=== PATIENT | female | born 1940 | race Caucasian/White ===

== ENCOUNTER → 2018-11-21 | Outpatient (CLI) | payer OTHER ==
[~2018-11-21] VITALS: Ht 154.9 cm; Wt 131.1 kg
[~2018-11-21] MED LIST: APAP650 PO; ASPIR 8181 MG PO; ATROVENT HFA14 GM INH; AZELASTINE137 MCG/0. NASAL; BIOFREEZE118 ML TOP; CARAFATE 1 GM TA1 G1 PO; CERAVE453 GM TOP; CLINDAMYCIN PHO30 GM TOP; COLACE100 MG PO; COMBIVENT INH; FLONASE 0.05%50 MCG NASAL; LIDODERM1 EACH TOP; LISINOPRIL10 MG PO; MAALOX MAXIMUM355 ML PO; MIRALAX17 GM PO; MOBIC15 MG PO; NORITATE60 GM TOP; NYAMYC15 GM TOP; ONDANSETRON HCL4 M2 PO; OXYCONTIN10 M1 PO; PEPCID20 MG PO; ROXICODONE5 MG PO; SENNA8.6 MG PO; SINGULAIR 10 MG10 M1 PO; SYMBICORT160 MCG/4. INH; SYNTHROID200 MCG PO; TRIAMCINOLONE A80 G2 TOP; UNICOMPLEX M TA1 TA1 PO; VENTOLIN HFA 1818 GM INH; WELLBUTRIN XL300 MG PO; XANAX 0.5 MG0.5 MG PO; [UNRECOGNIZED DRUG - OTHER] TOP
--- NOTE | ~2018-11-21 | HPC ---
[facility] [place] [address] PAIN MANAGEMENT CONSULTATION Name: CAMERON KAISER Room #: REG ROSA JuarezGiovanaDawsonGiovana#: [id number] Admission: 11/21/18 ������������������ Attend Phys: eJana Stone MD Discharge: ������������������ Date of : 44 Report #: [id number] THIS REPORT FOR: //name// CC: RODRIGO physician/PCP Jeana Stone DATE OF SERVICE: 11/21/2018 CHIEF COMPLAINT: Bilateral back and shoulder pain. HISTORY: The patient is a 78-year-old female, who has been referred to the pain clinic for evaluation of chronic pain involving her upper extremities. She complains of pain, which is radiating down into her shoulders to the level of her elbows. It has been problematic for about the last 8 months. She has had cortisone injections in her shoulders. It was felt that they helped for a brief amount of time for generally about a week. She had electrical stimulation in her shoulder areas. She states that this worked for about 4 hours. She has had occupational therapy as well as physical therapy. She has tried use of TENS unit. She states that she needs shoulder replacements. She did work in the past as a respiratory therapist at [employer]. She was told that her upper extremity should not be moved too much because of her shoulders. She has also been told that if she does not move her shoulders then they probably will become less effective as arthritic changes start to incur. PAST MEDICAL HISTORY: 1. Morbid obesity. 2. Polyarthritis. 3. Type 2 diabetes with diabetic neuropathy. 4. Hypothyroidism. 5. Major depressive disorder, in remission. 6. Unspecified asthma. 7. Essential hypertension. 8. Chronic pain. 9. Allergic rhinitis. 10. Obstructive sleep apnea. PAST SURGICAL HISTORY: Cholecystectomy in 1987. Abdominal hernia repair in 1999 and 2009. CURRENT MEDICATIONS: Azelastine 137 mcg pump q.12 hours, Combivent 14.7 g inhaler 1-2 puffs up to 4 times daily, Symbicort 160/4.5 inhaled b.i.d., Synthroid 200 mcg, Flonase 0.05% nasal spray, Unicomplex-M tablets, meloxicam 15 mg, CeraVe 453 grams topical, Maalox Maximum q.4 hours p.r.n., Aristocort R 0.1% tube apply topical 4 times to 2 times daily, clindamycin gel topical, metronidazole 60 gram topical, Atrovent 2 puffs q.4 hours, Zestril 10 mg, Singulair 10 mg, Ventolin q.6 hours 2 puffs, Zofran 4 mg, Pepcid 20 mg b.i.d., [facility] [address] [place] [address] PAIN MANAGEMENT CONSULTATION Name: CAMERON KAISER Room #: REG ROSA Sommer#: [id number] Admission: 11/21/18 ������������������ Attend Phys: Jeana Stone MD Discharge: ������������������ Date of : 42 Report #: [id number] Xanax 0.5 mg, anxiety and restlessness; Colace 100 mg, Senna 2 daily, Carafate 1 gram b.i.d., Lidoderm topical, Tylenol Arthritis 650 mg, nystatin powder, Wellbutrin-XL 300 mg, aspirin 81 mg, MiraLax 17 grams, Roxicodone 5 mg q.6 hours, Biofreeze 118 mL gel b.i.d., and luliconazole 60 gram cream topical. ALLERGIES: SULFA, LORAZEPAM, ISUPREL, INDOMETHACIN, CIPRO, SCOPOLAMINE, GABAPENTIN, METFORMIN, CORTISONE, MILK, AND LATEX. SOCIAL HISTORY: She is retired. She used to be respiratory therapist, has not worked since 1990. REVIEW OF SYSTEMS: Weight change, fatigue, cataracts, hearing loss, chronic sinus problems, shortness of breath with walking, asthma, rash, itching, change in skin color, varicose veins, lightheadedness, dizziness, tremors, anxiety, insomnia, thyroid disease, diabetes, hot and cold intolerance, and anemia history. PAIN CLINIC ASSESSMENT AND PQRS: 1. History of osteoarthritis. The patient has osteoarthritic changes in her shoulders. 2. Rheumatoid arthritis. The patient is not being treated for rheumatoid arthritis. 3. Pain intensity is 6/7. 4. Fall risk. The patient has not fallen in the last 3 months. 5. Blood thinner. The patient is not on a blood thinning medication. 6. Hypertension. The patient is being treated for hypertension. 7. Opioids. The patient received medication from her source. 8. Risk assessment tool, low for opioid use. 9. Functional assessment, 32/70. 10. Recreational drug use. The patient denies use of recreational drugs. 11. Tobacco: The patient has never smoked. 12. Alcohol: The patient denies use of alcoholic beverages. PHYSICAL EXAMINATION: GENERAL: The patient is a well-developed white female. She appears morbidly obese. She is alert and oriented x 3. Affect is appropriate. Speech is fluent. Height is 5 feet 1 inch, weight is 289 pounds, and BMI is 54.6. VITAL SIGNS: Blood pressure was 134/70, pulse was 86, respiratory rate was 18, and room air saturation was 97%. HEENT: Normocephalic, atraumatic. The patient has pain and discomfort in the upper extremity. She complains of pain and discomfort in her shoulders. Limited movement of her upper extremities. She notes increased pain in her shoulders. She is unable to lift her hands over her head. HEART: Difficult to hear the heart tones. Pulse is regular. Respiratory sounds are distant. ABDOMEN: Protuberant. [facility] [address] [place] [address] PAIN MANAGEMENT CONSULTATION Name: CAMERON KAISER Room #: REG ROSA JuarezGiovanaDawsonGiovana#: [id number] Admission: 11/21/18 ������������������ Attend Phys: Jenaa Stone MD Discharge: ������������������ Date of : 42 Report #: [id number] EXTREMITIES: The patient is in a wheelchair. Lower extremity muscle strength is judged to be 4+/5 for the major muscle groups in the lower extremity. LABORATORY DATA: No laboratory values are available at the time of our interview. IMPRESSION: 1. 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 2. Morbid obesity. 3. Polyarthritis. 4. Type 2 diabetes with diabetic neuropathy. 5. Hypothyroidism. 6. Major depressive disorder, in remission. 7. Unspecified asthma. 8. Essential hypertension. 9. Chronic pain. 10. Allergic rhinitis. 11. Obstructive sleep apnea. RECOMMENDATIONS: We have discussed treatment options with the patient. I do not think that she has a real option. Lack of activity in her upper extremities will definitely present with more atrophy. We will try to increase her OxyContin to 10 mg 1 p.o. b.i.d. to t.i.d. and noticed efficacy. There are no growth good choices at this juncture. The patient needs to stay as active as possible to keep her upper extremities as well as lower extremity as active as possible. A script for OxyContin 10 mg 1 p.o. daily has been written. She can follow up in the future as needed. We would like to thank you for letting us to participate in her care. We hope she continues to improve. ��������������������������������������������� ���������������������������������������� By: ��������������������������������������������� 1807 0610 Jeana Stone MD /NIMO
[2018-11-21 13:51] VITALS: BP 134/70
== END ==
LOC: PAIN 07:13
DX: M19.011 Primary osteoarthritis, right shoulder (principal); M19.012 Primary osteoarthritis, left shoulder; G89.29 Other chronic pain; E11.40 Type 2 diabetes mellitus with diabetic neuropathy, unspecified; E03.9 Hypothyroidism, unspecified; J45.909 Unspecified asthma, uncomplicated; I10 Essential (primary) hypertension; G47.33 Obstructive sleep apnea (adult) (pediatric); E66.01 Morbid (severe) obesity due to excess calories; F32.5 Major depressive disorder, single episode, in full remission; Z68.43 Body mass index [BMI] 50.0-59.9, adult; Z79.899 Other long term (current) drug therapy

== ENCOUNTER → 2019-05-17 | Outpatient (CLI) | payer OTHER ==
[~2019-05-17] VITALS: Ht 154.9 cm; Wt 129.3 kg
[2019-05-17 13:03] VITALS: BP 129/57
--- NOTE | 2019-05-17 13:15 | NUR ---
Pain Clinic Assessment: 1. History of Osteoarthritis: SHOULDERS History of Rheumatoid Arthritis: Not Applicable 2. Height: 5 ft. 1 in. 154.9 cm. Weight: 285.0 lb. oz. 129.276 kg. Patient's BMI: 53.9 3. Vital Signs: BP: 129/57 Pulse: 81 Resp: 16 Temp: 02 Sat: 97 ECG Mon: 4. Pain Intensity: 6-7 5. Fall Risk: Dizziness: Y Needs help standing or walking: Y Fallen in the last 3 months: N Fall risk comments: 6. Patient on Blood Thinner: None 7. History of Hypertension: Y 8. Opioid Therapy greater than 6 weeks: N Opiate Contract Signed: 9. Risk Assessment Tool Provided: LOW RISK 08/30 10. Functional Assessment Tool: 11. Recreational Drug Use: Never Drug Type: Tobacco Use: Never Smoker Tobacco Type: Amount or Packs/day: How Many Years: Alcohol Use: No Frequency: Quant:
--- NOTE | 2019-06-07 08:26 | HPC ---
[facility] [place] [address] PAIN MANAGEMENT CONSULTATION Name: CAMERON KAISER Room #: REG ROSA DelgadoGiovana#: [id number] Admission: 05/17/19 Attend Phys: Jeana Stone MD Discharge: Date of : 42 Report #: [id number] THIS REPORT FOR: //name// CC: RODRIGO physician/PCP Jeana Stone DATE OF SERVICE: 05/17/2019 CHIEF COMPLAINT: Left and right shoulder pain and neck pain. HISTORY: The patient is a 78-year-old female who has been seen in the pain clinic in the past because of chronic pain involving her upper extremities. She has suffered from pain that radiates down in her shoulders to the level of the elbows. She has been noticing worsening of her pain over the last several months. She has used Biofreeze daily. She finds that this is helpful. She lives in the [facility]. She has used a TENS unit in the past. She has used Voltaren gel and found that has been helpful. Has used oxycodone and found that is helpful. Water therapy has been beneficial. Describes her pain as constant, sometimes sharp and throbbing. Rates it as a 6-7 at this juncture. She has returned to the pain clinic for evaluation. ALLERGIES: SULFA, LORAZEPAM, ISUPREL, INDOMETHACIN, CIPRO, SCOPOLAMINE, GABAPENTIN, METFORMIN, CORTISONE, MILK, AND LATEX. CURRENT MEDICATIONS: Oxycodone 10 mg, azelastine 137 mcg q.12 hours, Combivent 14.7 inhaler 1-2 puffs 4 times daily, Symbicort 160/4.5, Synthroid 200 mcg, Flonase 0.05% two sprays nasal, mineral, multivitamins and iron, meloxicam 15 mg, CeraVe 453 grams cream topical, Maalox q.4 hours p.r.n. , clindamycin, metronidazole cream topical, Atrovent 2 puffs q.4 hours, lisinopril 10 mg, Singulair 10 mg, Ventolin HFA 2 puffs, Zofran 4 mg q.6 hours p.r.n., Pepcid 20 mg b.i.d., Xanax 0.5 mg restlessness, Colace 100 mg, senna 8.6 mg, Carafate 1 g b.i.d., Lidoderm topical, Tylenol Extra Strength 650 mg, nystatin 15 grams powder topical 3 times, Wellbutrin-XL 300 mg, aspirin 81 mg, MiraLax 17 grams, Roxicodone 5 mg q.6 hours p.r.n., Biofreeze 118 topical b.i.d., and luliconazole cream topical. PAIN CLINIC ASSESSMENT/PQRS: 1. History of osteoarthritis. The patient has osteoarthritic changes in her shoulders. The patient is not being treated for rheumatoid arthritis. 2. Height 5 feet 1 inch, weight 285 pounds, BMI is 53.9. 3. Vital signs: Blood pressure 129/57, pulse 81, respiratory rate 16, room air saturation 97%. 4. Pain intensity 6-7/10. 5. Fall risk. The patient has not fallen in the last 3 months. 6. Blood thinner. The patient is not on a blood thinning medication. 7. Hypertension. The patient is being treated for hypertension. [facility] [address] [place] [address] PAIN MANAGEMENT CONSULTATION Name: AWILDACAMERON Room #: REG ROSA Sommer#: [id number] Admission: 05/17/19 Attend Phys: Jeana Stone MD Discharge: Date of : 42 Report #: [id number] 8. Risk assessment tool, low for opioid use. 9. Functional assessment tool . 10. Recreational drug use. The patient denies. 11. Tobacco: The patient has never smoked. 12. Alcohol. The patient denies frequent use of alcoholic beverages. PHYSICAL EXAMINATION: GENERAL: The patient is a well-developed, somewhat obese white female, appears her stated age. She is alert and oriented x 3. Affect is appropriate. Speech is fluent. HEENT: Normocephalic, atraumatic. Extraocular eye muscles intact. Sclerae nonicteric. Mucous membranes are moist. NECK: Without adenopathy. The patient has shoulder pain. Some decreased range of motion in her upper extremities. Unable to lift her hands above her head. HEART: Difficult to hear secondary to the patient's body habitus. Respiratory sounds distant. ABDOMEN: Protuberant. EXTREMITIES: Muscle strength in the lower extremity, judged to be 4+/5 for the major muscle groups in the lower extremity. IMPRESSION: 1. Chronic pain involving osteoarthritis of the shoulder, morbid obesity. 2. Polyarteritis. 2. Type 2 diabetes with diabetic neuropathy. 3. Hypothyroidism. 4. Major depressive disorder, in remission. 5. Unspecified asthma. 6. Essential hypertension. 7. Chronic pain. 8. Allergic rhinitis. 9. Obstructive sleep apnea. RECOMMENDATIONS: We discussed the options with the patient. The patient has used TENS unit in the past and found that efficacious. I think it would be reasonable to apply it as needed to the affected areas. We would also continue the patient with OxyContin 5-10 mg daily. Hopefully, this will continue to help with her pain. Does take oxycodone on occasion. Should her pain continue to be problematic, she can take the oxycodone 5 mg in conjunction during a day with the 10 mg of OxyContin. She would also like to consider water therapy. She found that this was helpful. The patient may also continue with the Biofreeze, which she finds advantageous t.i.d. [facility] [address] [place] [address] PAIN MANAGEMENT CONSULTATION Name: AWILDACAMERON Room #: REG [facility]#: [id number] Admission: 05/17/19 Attend Phys: Jeana Stone MD Discharge: Date of : 42 Report #: [id number] We would like to thank you for letting us participate in her care. We hope she continues to improve. <ELECTRONICALLY SIGNED> By: Jeana Stone MD 06/07/19 [id number] Jeana Stone MD /NIMO
== END ==
LOC: PAIN 06:52
DX: M25.512 Pain in left shoulder (principal); E11.40 Type 2 diabetes mellitus with diabetic neuropathy, unspecified; E03.9 Hypothyroidism, unspecified; F32.9 Major depressive disorder, single episode, unspecified; J45.909 Unspecified asthma, uncomplicated; I10 Essential (primary) hypertension; G89.29 Other chronic pain; G47.33 Obstructive sleep apnea (adult) (pediatric); M31.7 Microscopic polyangiitis; Z91.040 Latex allergy status; Z79.899 Other long term (current) drug therapy; Z88.8 Allergy status to other drugs, medicaments and biological substances

== ENCOUNTER → 2020-12-25 | Outpatient (CLI) | payer OTHER ==
[~2020-12-25] VITALS: Ht 152.4 cm; Wt 135.6 kg
[~2020-12-25] MED LIST changes: +.; +CRANBERRY200 MG PO; +CULTURELLE KID1 EAC1 PO; +CYCLOBENZAPRINE5 MG PO; +DESITIN57 GM TOP; +DULCOLAX10 MG RECTAL; +EMU-LAC HYDRAT120 ML TOP; +GLUCOSAMIN-CHO1 EACH PO; +K-MG CITRATE 91 EACH PO; +LEVO-T100 MCG PO; +LEXAPRO20 MG PO; +MELATONIN5 MG SUBLING; +MELOXICAM15 MG PO; +MYLANTA MAXIMU355 ML PO; +OMEPRAZOLE 20 M20 M1 PO; +ORADENT 0.1% DEN5 G1 TOP; +VOLTAREN GEL 1100 G2 TOP
[2020-12-25 11:28] VITALS: BP 133/78
--- NOTE | 2020-12-25 12:01 | NUR ---
Pain Clinic Assessment: 1. History of Osteoarthritis: SHOULDERS History of Rheumatoid Arthritis: Not Applicable 2. Height: 5 ft. 0 in. 152.4 cm. Weight: 299.0 lb. oz. 135.626 kg. Patient's BMI: 58.4 3. Vital Signs: BP: 133/78 Pulse: 80 Resp: 16 Temp: 02 Sat: 95 ECG Mon: 4. Pain Intensity: 6 5. Fall Risk: Dizziness: N Needs help standing or walking: Y Fallen in the last 3 months: N Fall risk comments: 6. Patient on Blood Thinner: None 7. History of Hypertension: Y 8. Opioid Therapy greater than 6 weeks: N Opiate Contract Signed: 9. Risk Assessment Tool Provided: 3 LOW RISK 10. Functional Assessment Tool: 39/ 11. Recreational Drug Use: Never Drug Type: Tobacco Use: Never Smoker Tobacco Type: Amount or Packs/day: How Many Years: Alcohol Use: No Frequency: Quant:
== END ==
LOC: PAIN 09:18
PROVIDERS: ATTEND Anesthesiology Pain Medicine
DX: M19.012 Primary osteoarthritis, left shoulder (principal); M19.011 Primary osteoarthritis, right shoulder; G89.4 Chronic pain syndrome; M25.561 Pain in right knee; M25.562 Pain in left knee; E11.40 Type 2 diabetes mellitus with diabetic neuropathy, unspecified; E07.9 Disorder of thyroid, unspecified; E66.01 Morbid (severe) obesity due to excess calories; I10 Essential (primary) hypertension; G47.33 Obstructive sleep apnea (adult) (pediatric); F32.9 Major depressive disorder, single episode, unspecified; Z79.899 Other long term (current) drug therapy; Z79.891 Long term (current) use of opiate analgesic; Z91.040 Latex allergy status; Z87.442 Personal history of urinary calculi; Z90.49 Acquired absence of other specified parts of digestive tract; Z88.1 Allergy status to other antibiotic agents; Z88.2 Allergy status to sulfonamides; Z88.8 Allergy status to other drugs, medicaments and biological substances